=== PATIENT | male | born 1960 | race Caucasian/White ===

== ENCOUNTER 2020-04-26 18:47 | Emergency (ER) | payer OTHER ==
[~2020-04-26] VITALS: Ht 175.3 cm; Wt 72.6 kg
[2020-04-26] MEDS ORDERED: DOXYCYCLINE HY100 MG PO (19:45)
== END 2020-04-26 20:11 | disposition home or self-care (01) ==
LOC: ED 18:47
PROC: 0JC70ZZ Extirpation of Matter from Back Subcutaneous Tissue and Fascia, Open Approach (ICD-10-PCS; principal; 2020-04-26)
DX: S20.451A Superficial foreign body of right back wall of thorax, initial encounter (principal); F17.200 Nicotine dependence, unspecified, uncomplicated; Z88.0 Allergy status to penicillin; W45.8XXA Other foreign body or object entering through skin, initial encounter; W01.0XXA Fall on same level from slipping, tripping and stumbling without subsequent striking against object, initial encounter; Y92.096 Garden or yard of other non-institutional residence as the place of occurrence of the external cause
CPT/HCPCS: 10120; 99283-25

== ENCOUNTER 2021-01-31 12:06 | Emergency (ER) | payer OTHER ==
[~2021-01-31] VITALS: Ht 175.3 cm; Wt 71.7 kg
[~2021-01-31 12:06] MED LIST: DOXYCYCLINE HY100 MG PO
[2021-01-31] MEDS ORDERED: ASPIR-TRIN325 MG PO (13:55)
== END 2021-01-31 16:47 | disposition home or self-care (01) ==
LOC: ED 12:06
DX: M70.21 Olecranon bursitis, right elbow (principal); F17.200 Nicotine dependence, unspecified, uncomplicated; Z88.0 Allergy status to penicillin; Z79.82 Long term (current) use of aspirin
CPT/HCPCS: 20605; 73080; 99283-25

== ENCOUNTER 2022-01-11 18:09 | Inpatient (IN) | payer OTHER ==
[~2022-01-11] VITALS: Ht 175.3 cm; Wt 67.0 kg
--- NOTE | 2022-01-11 21:21 | NUR ---
REPORT FROM E.D. AT THIS TIME, REPORT PT HAS NO ETOH WITHDRAWL S/S AT THIS TIME. V/S STABLE.
--- NOTE | 2022-01-11 21:30 | NUR ---
PT ARRIVED TO ROOM 111 AT THIS TIME. PT ALERT, UNABLE TO ASSIST IN TRANSFER TO HOSPITAL BED. HE IS VERBAL BUT MUMBLES, DIFFICULT TO UNDERSTAND AT TIMES.
--- NOTE | 2022-01-11 21:45 | NUR ---
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 HE ALSO WAS NOTED TO BE VERY CONFUSED UNABLE TO ORIENTED TO ROOM, HE SAID "ARE WE GOING TO ANOTHER ROOM?" EXPLAINED TO PT THAT HE IS IN HOSPITAL AND THIS WILL BE HIS ROOM FOR THE NIGHT. PT THEN SAID "FIRST I WANT PIZZA", THEN HE SAID "I WANT SMOKE" THIS RN RE-ORIENTED PT THAT HE IS HOSPITAL AND THAT HE IS SICK AND UNDER DOCTOR CARE, THAT ONCE HE STARTED FEELING BETTER DOCTOR WILL ORDER FOR MORE REGULAR FOOD. PT CLOSED HIS EYES AND TURNED HIS HEAD WITH OUT VERABL RESPONSE. HE IS COUGHING FREQUENTLY AND BRING TO HIS MOUTH COUPIOUS AMOUNTS OF SECRETIONS. SUCTION AT BEDSIDE
--- NOTE | 2022-01-11 22:25 | NUR ---
AT NURSES STATION, UPDATED ON PT HAVING COPIOUS AMOUNTS OF SECRETIONS THAT HE IS NOT ABLE TO CLEAR OUT OF HIS MOUTH, THAT HE REQUIRES HELP WITH SUCTIONING, ON ASSESSMENT GAG REFLEX IS PRESENT, HE IS JUST NOT ABLE TO FULLY CLEAR AND SPIT OUT OR SUCTION HIMSELF DUE TO CONFUSION. NO NEW ORDERS AT THIS TIME
--- NOTE | 2022-01-11 23:00 | NUR ---
PLACED NEW ORDERS FOR R.T. TO PROVIDE NEB TREATMENTS AND ALSO FOR CLAUDIO CESPEDES.
--- NOTE | 2022-01-11 23:44 | NUR ---
PT HAD INCONT OF STOOL. AND URINE. STOOL WAS LIQUID AND ABSORBED IN TO CHUCKS UNABLE TO OBTAIN STOOL. PT NOTED TO GRIMACE WHEN ASSISTED TO TURN TO GIVE BED BATH AND CLEAN UP FROM INCONT OF LOOSE STOOL AND URINE, PT HAS MANY SKIN ISSUES, PHOTO TAKEN, PT UNABLE TO SIGN PHOTO CONSENT AT THIS TIME, DUE TO CONFUSION, WILL PLACE PICTURES IN CHART FOR CONTINUUM OF CARE EBP. PT NOTED TO SLEEP/SNORE ONCE CARE COMPLETE. IVF INFUSING ORDERED. SUCTION AT BEDSIDE
--- NOTE | 2022-01-11 23:55 | EKG ---
[facility] [address] [facility] [place] [address] Signed Normal sinus rhythm Left axis deviation Abnormal ECG No previous ECGs available Confirmed by JANETH DARDEN MD ([id number]) on 01/11/2022 11:55:39 PM Electronically Signed By: JANETH DARDEN MD 01/11/22 2355 PATIENT NAME: KESHIA DARBY Electrocardiogram DATE OF : 58 PHYSICIAN: JANETH DARDEN MD REPORT #: [id number] REPORT IS CONFIDENTIAL AND NOT TO BE RELEASED WITHOUT AUTHORIZATION
--- NOTE | 2022-01-12 01:31 | NUR ---
DISCUSSED PT CASE WITH Enrico ARROYO, HE SAID HE ALSO HAS CONCERNS ABOUT ASPIRATION WELL, HE HAD SPENT TIME IN ROOM DOING ASSESSMENT AND SUCTIONING PT WELL.
--- NOTE | 2022-01-12 02:00 | NUR ---
PT NOTED TO BE COUGHING AND WITH SECRETIONS RUNNING OUT IS MOUTH THIS RN INTO PT ROOM TO SUCTION AT THIS TIME, PT INITALLY REFUSED TO ALLOW SUCTION CAMMIE TO ASSIST IN REMOVING SECRETIONS FROM HIS MOUTH, SHAKING HIS HEAD BACK AND FORTH. THIS RN SAID "JUNO, YOUR MARILU SAID YOU ARE SUPPOSE TO COOPERATE AND LET US HELP YOU", PT THEN STOPPED RESISTING ASSISTANCE AND ALLOWED SUCTIONING.
--- NOTE | 2022-01-12 02:41 | NUR ---
THIS RN BACK INTO PT ROOM TO ASSIST WITH V/S AFTER PT ATTEMOTED TO SWING HIS ARM AT [facility] WHEN SHE ATTEMPTED TO SUCTION PT. PT ALLOWED THIS RN TO SUCTION AND PLACE B/P CUFF FOR V/S AFTER SAYING "JUNO, REMEMBER MARILU SAID YOU ARE SUPPOSE TO LET US HELP YOU"
--- NOTE | 2022-01-12 04:26 | NUR ---
ROUNDING OM PT, NOTED SECRETIONS ON HIS RIGHT CHECK, SUCTION PROVIDED, HE ALERT TO RN, BUT BACK TO SNORING SOON COMPLETED SUCTION CARE. NO NEW CONCERNS AT THIS TIME.
--- NOTE | 2022-01-12 07:41 | NUR ---
PATIENT INCONTINENT STOOL AND URINE. THIS RN, FERNANDO CAZARES, AND FERNANDO DURHAM CLEANED AND CHANGED PATIENT. STOOL SAMPLE SENT TO LAB. AIR WAY SUCTIONED FOR SECRETIONS. PATIENT PULLED UP IN BED AND HOB AT 35 DEGREES. SCD'S ON. AM ASSESSMENT COMPLETE. CALL LIGHT IN REACH. BED ALARM IS ON. PATIENT CAN BE SEEN FROM THE NURSES STATION. CIWA IS 10.
--- NOTE | 2022-01-12 08:04 | NUR ---
H&P admission notes faxed to [facility] for update.
--- NOTE | 2022-01-12 10:08 | NUR ---
THIS RN IN TO TRY AND GIVE AM MEDS. PATIENT HAVING A LOT OF THICK SECREATIONS AND COUGHS AT TIMES. ORAL SUCTIONING DONE TO REMOVE SECREATIONS. PATIENT NOT REALLY ORIENTED, BUT WASW ABLE TO TRY AND DRINK A LITTLE WATER FROM A STRAW WHICH HE COUGHED BACK UP. PATIENT UNABLE TO TAKE PO MEDS AND CONTINUOUS PULSE OX=88%. 2L/NC PLACED ON PATIENT. HOB ELEVATED TO 45DEGRESS. INFORMED OF PATIENT SECREATIONS AND DROOLING AND PATIENT'S INABILITY TO SWALLOW MEDS. VERBALIZED IT WAS OK TO MAKE PATIENT NPO FOR NOW AND AGREED WITH O2 BEING PLACED ON PATIENT. NO FURTHER ORDERS AT THIS TIME. CALL LIGHT IN REACH AND BED ALARM IS ON. MIA NURSE GORDON ALSO INFORMED OF THE SITUATION.
--- NOTE | 2022-01-12 10:15 | NUR ---
Attempted to speak with pt and he is incohert, babbling. Rn in room suctioning pts mouth as he is drooling. Per RN pt goes between babbling and swearing. Will contact for assessment.
--- NOTE | 2022-01-12 10:39 | NUR ---
PATIENT SITTING UP IN BED TALKING WITH WITH WHO IS AT BEDSIDE. VITALS AND I&O'S CHARTED. ORAL CARE, AM CARE DONE. ATTENDS CHANGED EARLIER AND MIGUELINA CARE DONE. CALL LIGHT IN REACH. NO FURTHER NEEDS AT THIS TIME.
--- NOTE | 2022-01-12 10:57 | NUR ---
PATIENT'S IS HERE NOW AND PATIENT IS FINALLY CONVERSIVE. RY FROM PT WORKING WITH THE PATIENT AND SHE AND THIS RN ASSISTED PATIENT UP TO THE BEDSIDE COMMODE. PATIENT FAIRLY LUCID AT THIS TIME. PT REMAINS IN ROOM WITH PATIENT.
--- NOTE | 2022-01-12 11:30 | NUR ---
Spoke with pt's , Sylvia. She states [place] [address] . They have 5 steps into the trailer, and 3 steps into their bedroom. Pt does not use and DME. 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 They have food stamps and assistance through [employer] for their propane. Utilities are included in their rent. She denies shortness of money. Does not use the food bank. States Guru drinking has increased recently until she decided to no longer drive him for alcohol. States she is done. We discussed [facility] and I left their card with her. Let her know I will discuss with Guru when he is clearer mentally. She states they both smoke too much. States her home is filthy, she and he are both unkept. States she plans on cleaning while he is hospitalized. States he was 3 days on their mattress, and it is soiled beyond cleaning She plans on removing and buying a new one. She denies other needs. Plans on pt going home when cleared medically. She denies need to speak with DAVIDSON, but would like pt to do so. Let her know I cannot call them until pt agrees.
--- NOTE | 2022-01-12 12:54 | NUR ---
KATALINA PAZ JUST FINISHED TRYING TO TALK TO THE PATIENT, BUT WAS NOT ABLE TO UNDERSTAND MUCH THE PATIENT WAS TRYING TO STAY. THIS RN REQUESTED A SWALLOW EVAL WE ARE STILL KEEPING PATIENT NPO FROM HIS PROBLEMS TRYING TO DRINK WATER EARLIER. ORDERING THE EVAL. PATIENT DESTROYED HIS PULSE OX PROBE AND A NEW ONE WAS PLACED. 02 SATS 93% ON 2L/NC. PATIENT CAN BE VISUALIZED FROM THE NURSES STATION AND REMAINS SITTING UP IN THE BEDSIDE ARM CHAIR. CALL LIGHT IN REACH.
--- NOTE | 2022-01-12 13:30 | NUR ---
PATIENT HAD XL INCONT. STOOL. PATIENT TO BS FROM CHAIR. MIGUELINA CARE DONE. SKIN CARE DONE. NEW GOWN PROVIDED. PATIENT BACK TO CHAIR, 2PA PIVOT. VITALS AND I&O'S CHARTED. CHAIR ALARM ON. CALL LIGHT IN REACH. NO FURTHER NEEDS AT THIS TIME.
--- NOTE | 2022-01-12 13:30 | NUR ---
PATIENT HAD A LARGE INCONTINENT URINE AND LIQUID STOOL WHILE SITTING UP IN THE BEDSIDE ARM CHAIR. THIS RN, FERNANDO DURHAM, AND DYLAN LEYVA CLEANED PATIENT UP GOT HIM TO THE COMMODE WHERE HE HAD ANOTHER LIQUID STOOL AND VOID. PATIENT BACK IN THE BEDSIDE ARM CHAIR IN FRESH ATTENDS AND ON A CHAIR ALARM. AWAITING SPEECH THERAPY FOR ADELFO EARL. CHARGE NURSE GORDON REMAINING IN ROOM AND THIS RN HAS BEEN SENT TO LUNCH.
--- NOTE | 2022-01-12 14:37 | NUR ---
SPEECH THERAPY HERE DOING SWALLOW EVAL.
[2022-01-12] MEDS ORDERED: ASPIR-TRIN325 MG PO (16:35)
--- NOTE | 2022-01-12 16:59 | NUR ---
PATIENT CONTINUES TO SIT IN THE BEDSIDE ARMCHAIR RESTING WITH CHAIR ALARM ON, RESPIRATIONS ARE REGULAR AND EVEN, PATIENT HAS NO CURRRENT CARE NEEDS, IV INFUSING WNL, O2 SATS=92% ON AND HR=88 ON PULSE OX. CALL LIGHT IS IN REACH.
--- NOTE | 2022-01-12 17:44 | NUR ---
PATIENT SITTING UP IN CHAIR AT THIS TIME. VITALS AND I&O'S CHARTED. CHAIR ALARM ON. CALL LIGHT IN REACH. NO FURTHER NEEDS AT THIS TIME.
--- NOTE | 2022-01-12 18:14 | NUR ---
X-RAY CURENTLY IN PATIENT'S ROOM FOR 2 VIEW PORTABLE SHOULDER X-RAY. PATIENT REMAINS SITTING IN BEDSIDE ARMCHAIR WITH CHAIR ALARM ON. PATIENT'S ATTENDS WERE JUST CHECKED AND PATIENT REMAINS DRY AT THIS TIME. CALL LIGHT IN REACH.
--- NOTE | 2022-01-12 18:23 | NUR ---
PATIENT HAS HAD 2 LARGE INCONTINENT STOOL EPISODES TODAY AND HAS BEEN INCONTINENT URINE ALL DAY. STOOL SAMPLE SENT TO LAB THIS AM. PATIENT CURRENTLY HAS A D5LR WITH VITAMINS AND MINERALS HANGING RUNNING AT 1OOMLS/HR. PATIENT HAS ALLEVYNS ON HIS RIGHT MURO, RIGHT BUTTOCK, BACK OF RIGHT THIGH, AND OVE THE COCCYX AREA AND GLUTEL CLEFT FOR ABRASIONS THAT WERE HAVING SOME RED DRAINAGE. PATIENT HAS BEEN C/O SOME LEFT SHOULDER PAIN AND HE HAS BEEN GAURDED OF THE LEFT SHOULD, SO 2 VIEW LEFT SHOULD X-RAY JUST TAKEN WITH PORTABLE MACHINE IN THE ROOM. PATIENT LUNG SOUNDS ARE DIM AND COARSE. PATIENT KNOWS WERE HE IS SOMETIMES AND SOMETIMES KNOWS WHAT DATE IT IS. PATIENT USES CURSES AND SWEARS AT TIME WITH NURSING CARES FOR NO APPARRENT REASON. PATIENT HAS BEEN MORE COOPERATIVE THIS AFTERNOON. SWALLOW EVAL DONE AND PATIENT TO BE ON MINCED MOIST FOODS WITH THICKEND LIQUIDS TO DRINK. PATIENT SITTIN UP IN BEDSIDE ARMCHAIR AT THIS TIME AND DINNER JUST ARRIVED. CHAIR ALARM IS ON AND CALL LIGHT IS IN REACH.
--- NOTE | 2022-01-12 19:05 | NUR ---
RECEIVED REPORT FROM DAY SHIFT RN. PATIENT IS RESTING IN RECLINER EATING DINNER. PATIENT DENIES ANY NEEDS. CHAIR ALARM N FOR SAFETY.
--- NOTE | 2022-01-12 19:25 | NUR ---
ASSISTED ESTEFANIA DURHAM. PATIENT USED THE BEDSIDE COMMODE. PLACED NEW SOCKS, FRESH PULL UPS AND GOWN. PATIENT IN BED NOW. WARM BLANKET PROVIDED. BED ALARM ON FOR SAFETY.
--- NOTE | 2022-01-12 21:18 | NUR ---
PATIENT ASSESMENT COMPLETED. PATIENTS VITALS TAKEN AND RECORDED. PATIENTS ATTEND IS DRY AT THIS TIME. PATIENTS INTAKE AND OUTPUT RECORDED. PATIENT CROW ANY PAIN. SCDS IN PLACE. PATIENT REPOSITIONED IN BED. PATIENT SUCTIONED. PATIENT REMAINS IN RA. CPOX IN USE. PATIENTS IV INFUSING PER ORDER. BED ALARM ON FOR SAFETY. CALL LIGHT IN REACH. PATIENT DENIES ANY NEEDS. CALL LIGHT IN REACH.
--- NOTE | 2022-01-12 22:37 | NUR ---
PATIENT IS RESTING IN BED WITH EYES CLOSED, RR 16. CPOX READINGS ARE WNL. CALL LIGHT IN REACH. BED ALARM ON FOR SAFETY.
--- NOTE | 2022-01-12 23:03 | NUR ---
PATIENT ASSISTED TO THE BSC A 2PA PIVOT XFER. PATIENT WAS INCT STOOL AND URINE. PATIENT ABLE TO VOID IN BSC. MIGUELINA CARE COMPLETED AND NEW ATTEND IN PLACE. PATIENT IS BACK IN BED RESTING. PATIENTS CPOX IN USE AND SCDS IN PLACE. PATIENTS IV INFUSING PER ORDER. PATIENTS CALL LIGHT IN REACH. BED ALARM ON FOR SAFETY.
--- NOTE | 2022-01-13 00:03 | NUR ---
NEW BACG OF IV FLUIDS HUNG AND INFUSING PER ORDER. PATIENT ASSISTED WITH GLASSES. PATIENT PLACED ON 2L VIA NC. REORIENTED PATIENT. PATIENT IS RESTING IN BED WATCHING TV. PATIENT DENIES ANY NEEDS. CALL LIGHT IN REACH. BED ALARM ON FOR SAFETY.
--- NOTE | 2022-01-13 00:46 | NUR ---
THICKENED ORANGE JUICE PROVIDED PER PATIENT'S REQUEST. PATIENT STATED IF HE CAN HAVE A COUPLE OF ASPIRIN. PRIMARY RN CURTIS NOTIFIED.
--- NOTE | 2022-01-13 00:53 | NUR ---
PATIENT REPORTS PAIN IN HIS LEFT SHOULDER. PRN ADVIL GIVEN PER ORDER. PATIENT IS SITTING UP HIGH IN BED. PATIENT PROVIDED WITH ORANGE JUICE THICKENED BY EPIC MANAGER. PATIENT DENIES ANY FURTHER NEEDS. CALL LIGHT IN REACH. BED ALARM ON FOR SAFETY.
--- NOTE | 2022-01-13 01:43 | NUR ---
PATIENT ASSISTED TO EAT APPLESAUCE. PATIENT ABLE TO EAT ALL OF APPLESAUCE. FRESH WATER THICKENED PROVIDED. PATIENT REMAINS ON 2L VIA MD. PATIENT DENIES ANY FURTHER NEEDS. PATIENT REMAINS SITTING IN HIGH FOLWERS WATCHING TV. CALL LIGHT IN REACH. BED ALARM ON FOR SAFETY.
--- NOTE | 2022-01-13 03:11 | NUR ---
PATIENTS ATTEND IS DRY AT THIS TIME. PATIENT PROVIDED WITH FRESH WATER. NO NEEDS NOTED. CALL LIGHT IN REACH. BED ALARM ON FOR SAFETY.
--- NOTE | 2022-01-13 05:51 | NUR ---
PATIENT INCONT OF STOOL AND URINE. PATIENTS ATTEND AND BEDDING CHANGED, AND MIGUELINA CARE COMPLETED. ALLYVNS ON R/L BUTTOCK, COCYX, AND RIGHT REAR THIGH ALL CHANGED. PATIENTS VITALS TAKEN AND RECORDED. INTAKE AND OUTPUT RECORDED. IV INFUSING PER ORDER. SCDS IN PLACE. PATIENT REMAINS ON 2L VIA NC. CPOX IN USE. PATIENT STATED "MY IS ". ATTEMPTED TO REORIENT PATIENT. PATIENT STATED "I WAS DRIVING AND WE HAD A HEAD ON COLLISION AND SHE ". ORIENTED PATIENT TO SURROUNDINGS. PATIENT IS ONLY ORIENT TO SLEF AT THIS TIME. CALL LIGHT IN REACH. BED ALARM ON FOR SAFETY.
--- NOTE | 2022-01-13 06:06 | NUR ---
2 madeline. DYLAN ACEVEDO AND THIS [employer]ICE LAWYER. WIPED/CLEANED PATIENT FROM EXTRA LARGE LOOSE BOWEL MOVEMENT. CHANGED THE WHOLE BED LINEN. CHANGED GOWN. V/S AND I&O'S DONE. BED ALARM ON. SIDE TABLE, CALL LIGHT AND SUCTION WITHIN REACH.
--- NOTE | 2022-01-13 06:23 | NUR ---
PATIENTS SCHEDULED MEDICATIONS GIVEN PER ORDER. PATIENT DENIES ANY NEEDS. CALL LIGHT IN REACH. BED ALARM ON FOR SAFETY.
--- NOTE | 2022-01-13 07:55 | NUR ---
PATIENT PLACED IN RECOVER POSITION BY GUSTAVO FROM RT. PATIENT IS HAVING A LOT OF ORAL SECREATIONS. PATIENT SUCTIONED PRN. TOWEL UNDER LEFT SIDE OF FACE. PATIENT ONLY ORIENTED TO SELF AT BEST AT THIS TIME. PATIENT CAN BE VISUALIZED FROM NURSES STATION THROUGH THE ROOM DOOR. CALL LIGHT IS IN REACH AND BED ALARM IS ON.
--- NOTE | 2022-01-13 08:04 | NUR ---
PATIENT IN BED RESTING WITH EYES CLOSED. TALKED WITH RN AND AGREED TO LET PATIENT REST FOR A BIT. CALL LIGHT IN REACH. BED ALARM ON. NO FURTHER NEEDS AT THIS TIME.
--- NOTE | 2022-01-13 08:53 | NUR ---
PATIENT'S HAS ARRIVED AND THIS RN IS HOPING THAT HER PRESENCE WILL BRING PATIENT AROUND LIKE IT DID YESTERDAY. IS SITTING AT BEDSIDE SINGING AND TALKING TO THE PATIENT. PO MEDS AND BREAKFAST HAVE BEEN HELD AT THIS TIME PATIENT IS NO ALERT ENOUGH TO TAKE PO AT THIS TIME. RESPIRATIONS ARE REGULAR AND EVEN, SPO2=92% ON 2.5L/NC WITH HR=82. CALL LIGHT IS IN REACHA ND BED AARM IS ON.
--- NOTE | 2022-01-13 09:15 | NUR ---
Spoke with . He is awake today. slow thought process, but able to answer questions. Updated PT and Dr. feel he would benefit from a SNF. Pt declines SNF and plans on dc to home. Declines to speak to [facility]IDSON about his alcohol use and states he does not plan on quitting. Pt plans on discharging to home tomorrow at noon. Asked him to discuss this with Dr. Willett. Pt does feel he may need a walker. I will update Dr. Willett.
--- NOTE | 2022-01-13 09:28 | NUR ---
PATIENT IS STARTING TO WAKE UP A LITTLE, AT LEAST ENOUGH TO BE DISAGREEING WITH HIS . INFORMED THAT I WOULD BE BACK IN WITH PT IN AWHILE TO TRY AND GET THE PATIENT UP TO THE CHAIR. VERBALIZED UNDERSTANDING.
--- NOTE | 2022-01-13 10:10 | NUR ---
THIS RN AND FERNANDO DURHAM CLEANED UP INCONTINENT STOOL AND PLACED NEW ATENDS. RY FROM PT IN ROOM GETTING PATIENT UP TO THE CHAIR WITH FWW. CALL LIGHT IN REACH.
--- NOTE | 2022-01-13 10:51 | NUR ---
PATIENT BACK FROM WALKING IN THE [place] WITH PT AND FWW. PATIENT TOOK AM MEDS IN APPLESAUCE AND IS EATING HIS MODERATE THICK/MINCED MOIST BREAKFAST. PATIENT DENIES PAIN AND IS ORIENTED TO YEAR/PLACE/SELF/SPOUSE. PATIENT HAS CHAIR ALARM ON AND IS SITTING ON SOFA TALKING WITH PATIENT. CALL LIGHT IN REACH. PATIENT HAS NO OTHER CARE NEEDS AT THIS TIME.
--- NOTE | 2022-01-13 11:19 | NUR ---
PT SITTING IN CHAIR WITH MARILU AT [facility] SIDE. COMMUNICATION WITH PT IS DIFFICULT, BUT CAN UNDERSTAND HIS RESPONSES. HE AND IN SOME KIND OF SLIGHTLY HEATED DISCUSSION WHEN I ENTERED. KEPT CONVERSATION LIGHT, GAVE G.POST AND WILL CONTINUE TO CHECK BACK
--- NOTE | 2022-01-13 11:30 | NUR ---
LAC IV HAS INFILTRATED AND WAS DC'D BY THIS RN. NEW 22G IV STARTED IN THE RIGHT HAND WITH 3 ATTEMPTS. PATIENT SAYS HE IS COMFORTABLE UP IN THE BEDSIDE ARMCHAIR. ANGEL FROM CASE MANAGEMENT CAME BY AND TALK TO PATIENT ABOUT TREATMENT OPTIONS TO STOP DRINKING AND PATIENT DECLINED ANY HELP AT THIS TIME. CHAIR ALARM IS ON, THICKENED FLUIDS IN REACH.
--- NOTE | 2022-01-13 12:17 | NUR ---
GAVE VERBAL ORDER TO SALINE LOCK IV NOW. WHICH WAQS DONE. PATIENT INCONTINENT STOOL AND THIS RN AND FERNANDO DURHAM CLEANED PATIENT UP AND HE IS BACK IN THE BEDSIDE ARMCHAIR EATING LUNCH AND GUSTAVO FROM RT HERE TO GIVE A NEB TREATMENT. CHAIRALARM ON AND CALL LIGHT IN REACH.
--- NOTE | 2022-01-13 14:14 | NUR ---
PATIENT RESTING QUIETLY UP IN THE BEDSIDE ARMCHAIR AND HE DOES NOT WANT TO BE BOTHERED AT THIS TIME, HE WANTS TO SLEEP. CALL LIGHT IN REACH AND CHAIR ALARM IS ON.
--- NOTE | 2022-01-13 15:40 | NUR ---
GUSTAVO FROM RT IN WITH PATIENT AT THIS TIME GIVING HIM A NEB TREATMENT. PATIENT REMAINS UP IN THE BEDSIDE ARMCHAIR, CHAIR ALARM ON, CALL LIGHT IN REACH.
--- NOTE | 2022-01-13 15:45 | NUR ---
Received Rx from Dr. Willett for a FWW. Pt states he does not care which DME company it comes from. He just wants whichever can deliver by tomorrow. Called [facility] and they will only deliver if they have other supplies to deliver. [facility] will deliver tomorrow. Will fax orders to [facility]. Face sheet, H&P, Rx, progess note showing need for walker.
--- NOTE | 2022-01-13 16:06 | NUR ---
THIS RN IN TO SEE PATIENT. PATIENT'S LAB CAME BACK C-DIFF POSITIVE. THIS RN TOOK PATIENT HIS FIRST PO DOSE OF VANCO WITH ANOTHER SCHEDULED MED AND PATIENT TOOK THEM WITHOUT DIFFICULTY IN APPLESAUCE. PM ASSESSMENT COMPLETE. CALL LIGHT IN REACH AND CHAIR ALARM IS ON. O2 SATS=92 ON 2.5L/NC. PATIENT ATTENDS DRY AND HAS NO CURRENT CARE NEEDS FROM THIS RN.
--- NOTE | 2022-01-13 17:57 | NUR ---
PATIENT TO BSC AND BACK TO CHAIR, 1PA FWW. VITALS AND I&O'S CHARTED. FRESH WATER GIVEN. CALL LIGHT IN REACH. NO FURTHER NEEDS AT THIS TIME. CHAIR ALARM ON.
--- NOTE | 2022-01-13 18:49 | NUR ---
PATIENT CALLED AND ASKED THAT THE HEAD OF HIS BED BE LAID BACK WHICH THIS RN DID AND TURNED PATIENT TO HIS LEFT SIDE TO MAINTAIN AIRWAY IF PATIENT GOES TO SLEEP. PATIENT DID NOT NEED ANY THING ELSE AT THAT TIME. CALL LIGHT IN REACH AND BED ALARM IS ON.
--- NOTE | 2022-01-13 19:27 | NUR ---
RECEIVED REPORT FROM DAY SHIFT RN. PATIENT IS RESTING IN BED WITH EYES CLOSED, CPOX READINGS ARE WNL. PATIENTS BED ALARM ON FOR SAFETY. CALL LIGHT IN REACH.
--- NOTE | 2022-01-13 21:50 | NUR ---
PATIENT ASSESMENT COMPLETED. VITALS TAKEN RECORDED. PATIENTS ATTEND CHANGED AND MIGUELINA CARE COMPLETED. PATIENTS SCHEDULED MEDICATIONS GIVEN PER ORDER. PATIENTS PILLS GIVEN IN APPLESAUCE. PATIENT REPOSITIONED IN BED. IV FLUSHED AND IS SL PER ORDER. PATIENT TITRATED TO 2L VIA NC. CPOX IN USE. PATIENT PROVIDED WITH SIPS OF WATER. PATIENT DENIES ANY NEEDS. CALL LIGHT IN REACH. BED ALARM ON FOR SAFETY.
--- NOTE | 2022-01-14 00:09 | NUR ---
PATIENT TITRATED UP TO 3L VIA NC. PATIENT DENIES ANY NEEDS. CALL LIGHT IN REACH. BED ALARM ON FOR SAFETY.
--- NOTE | 2022-01-14 01:05 | NUR ---
PATIENTS ATTEND CHANGED AND MIGUELINA CARE COMPLETED. PATIENT REPOSITIONED IN BED. PATIENT DENIES ANY NEEDS. CALL LIGHT IN REACH. BED ALARM ON FOR SAFETY.
--- NOTE | 2022-01-14 03:58 | NUR ---
PATIENT IS RESTING IN BED WATCHING TV. PATIENT DENIES ANY NEEDS. CALL LIGHT IN REACH. BED ALARM ON FOR SAFETY.
--- NOTE | 2022-01-14 04:57 | NUR ---
PATIENT ASSISTED TO THE BSC A 1PA PIVOT. PATIENT WAS ABLE TO VOID AND HAD A SCANT AMOUNT OF BM IN URINE. PATIENT IS BACK IN BED RESTING. VITALS TAKEN AND RECORDED. SCHEDULED MORNING MEDICATIONS GIVEN PER ORDER. IV FLUSHED AND SL PER ORDER. PATIENT DENIES ANY NEEDS. CALL LIGHT IN REACH. BED ALARM ON FOR SAFETY. PATIENT REMAINS ON 3L VIA NC.
--- NOTE | 2022-01-14 07:30 | NUR ---
Bedside report completed. Patient continued to sleep throughout report. His respirtation 20, oxygen rangin 90-94 on 3L while sleeping. He is laying supine at this time. He appears to be in no distress.
--- NOTE | 2022-01-14 08:10 | NUR ---
Patient appears asleep, TV is on. CPOX continues.
--- NOTE | 2022-01-14 09:22 | NUR ---
AM assessment completed, AM medications given. Patient falls asleep as you are talking with him, his lungs are aubily coarse, and appears to have possible sleep apnea. He says he is in no actual pain, just discomfort in the left shoulder. He denies need for anything.
--- NOTE | 2022-01-14 10:00 | NUR ---
Spoke with pt and he asks about his walker. Updated the walker will arrive between 9 and 12 from [facility]. Pt states he is still planning on leaving at noon today and will ask his to pick him up. I again asked the pt to discuss this with Dr. Willett.
--- NOTE | 2022-01-14 11:04 | NUR ---
Patient is sleeping sitting up in the chair, continues to use 3L BNC to maintain oxygen saturation greater than 92%. Respiration 19 .
--- NOTE | 2022-01-14 12:13 | NUR ---
MD at bedside, he discontinued his oxygen, and will be discharging him.
[2022-01-14] MEDS ORDERED: NICOTINE1 EAC2 TD (12:27)
[2022-01-14] MEDS ORDERED: VANCOMYCIN HCL125 MG PO (12:27)
--- NOTE | 2022-01-14 12:52 | NUR ---
Patient to discharge home, needs to be notified. Patient having lunch at this time.
--- NOTE | 2022-01-14 13:18 | NUR ---
MESSAGE LEFT ON SPOUSES PHONE THAT PATIENT WAS READY FOR DISCHARGE.
== END 2022-01-14 14:46 | disposition home or self-care (01) | DRG 896 ==
LOC: ED 18:09 → MS 18:10
PROVIDERS: ADMIT Internal Medicine; ATTEND Internal Medicine
DX: F10.231 Alcohol dependence with withdrawal delirium (principal); G93.41 Metabolic encephalopathy; M62.82 Rhabdomyolysis; E51.9 Thiamine deficiency, unspecified; G72.1 Alcoholic myopathy; A04.72 Enterocolitis due to Clostridium difficile, not specified as recurrent; Z20.822 Contact with and (suspected) exposure to COVID-19; K70.10 Alcoholic hepatitis without ascites; R11.10 Vomiting, unspecified; M54.50 Low back pain, unspecified; E86.0 Dehydration; R13.12 Dysphagia, oropharyngeal phase; E53.8 Deficiency of other specified B group vitamins; M25.512 Pain in left shoulder; D69.6 Thrombocytopenia, unspecified; G89.29 Other chronic pain; R29.6 Repeated falls; M19.90 Unspecified osteoarthritis, unspecified site; F17.210 Nicotine dependence, cigarettes, uncomplicated; Z88.0 Allergy status to penicillin; Z79.82 Long term (current) use of aspirin
CPT/HCPCS: 36415; 70450; 71045; 73030; 76705; 80048; 80053; 81001; 82140; 82553; 83690; 83735; 84100; 84484; 85025; 85610; 85730; 87493; 92526; 92610; 93005; 93010; 94640; 94760; 94762; 96374; 97110; 97116; 97162; 97530; 99285-25; A9270; C9803; G0378; G0480; J2405; J3411; J3480; J7042; J7060; J7121; U0003